=== PATIENT | female | born 1975 | race Two or more races ===

== ENCOUNTER 2020-12-20 06:40 | Day surgery (SDC) | payer OTHER | END 2020-12-20 21:00 | disposition home or self-care (01) | LOC: CIR.AMB 06:40 | PROVIDERS: ATTEND Surgery | DX: D05.12 Intraductal carcinoma in situ of left breast (principal); Z20.822 Contact with and (suspected) exposure to COVID-19; Z90.12 Acquired absence of left breast and nipple; N62 Hypertrophy of breast ==

== ENCOUNTER 2022-01-02 06:30 | Day surgery (SDC) | payer OTHER | END 2022-01-02 21:55 | disposition home or self-care (01) | LOC: CIR.AMB 06:30 | PROVIDERS: ATTEND Surgery | DX: C50.412 Malignant neoplasm of upper-outer quadrant of left female breast (principal); N60.21 Fibroadenosis of right breast; Z15.01 Genetic susceptibility to malignant neoplasm of breast; Z88.6 Allergy status to analgesic agent; Z42.1 Encounter for breast reconstruction following mastectomy; G43.909 Migraine, unspecified, not intractable, without status migrainosus; Z92.21 Personal history of antineoplastic chemotherapy; Z20.822 Contact with and (suspected) exposure to COVID-19 | CPT/HCPCS: 15777; 19303; 19357; L8600 ==

== ENCOUNTER 2022-05-22 05:38 | Day surgery (SDC) | payer OTHER ==
[~2022-05-22] VITALS: Ht 170.2 cm; Wt 89.8 kg
[~2022-05-22 05:38] MED LIST: B COMPLEX1 EAC1 PO; CALCIUM + D3 E1 EACH PO; FOLIC PO; MULTIV PO
== END 2022-05-22 13:50 | disposition home or self-care (01) ==
LOC: CIR.AMB 05:38
PROVIDERS: ATTEND Plastic Surgery
DX: C50.412 Malignant neoplasm of upper-outer quadrant of left female breast (principal); Z90.13 Acquired absence of bilateral breasts and nipples; Z20.822 Contact with and (suspected) exposure to COVID-19; Z88.6 Allergy status to analgesic agent; G43.909 Migraine, unspecified, not intractable, without status migrainosus
CPT/HCPCS: 11970; L8699